=== PATIENT | female | born 1995 | race African-American/Black ===

== ENCOUNTER 2017-12-21 15:43 | Emergency (ER) | payer SELFPAY | END 2017-12-21 16:05 | disposition home or self-care (01) | LOC: BURERS 15:43 | DX: R09.81 Nasal congestion (principal) | CPT/HCPCS: 99283 ==

== ENCOUNTER 2018-02-03 21:49 | Emergency (ER) | payer SELFPAY ==
[2018-02-03 22:31] LABS: Bilirubin Negative (Negative); Blood, Urine Trace (Negative); Glucose, Urine (Dipstick) Negative (Negative); Leukocyte Large (Negative); Nitrite Negative (Negative); Protein, Urine (Dipstick) Negative (Neg-Trace); Specific Gravity, Urine 1.025 (1.005-1.030)
[2018-02-03 22:32] LABS: Pregnancy Test - Urine (BHCG) Negative (Negative); Pregu Control Background? CLEAR/WHITE (CLR/WHITE); Pregu Control Bar Appear? YES (CONTROL BAR); Specific Gravity 1.024 (1.002-1.036)
[2018-02-03 22:33] LABS: Clarity Hazy (Clear)
[2018-02-03 22:38] LABS: RBC/HPF 0-3 HPF (0-3)
[2018-02-03 22:39] LABS: Bacteria/HPF 1+ HPF (None Seen); Squamous Epithelial 0-3 HPF (0-3)
[2018-02-03] MEDS ORDERED: valACYclovir 500 MG TAB ONE (22:50)
[2018-02-03] MEDS ORDERED: Azithromycin 250 MG TAB ONE (22:50)
[2018-02-03] MEDS ORDERED: cefTRIAXone\\ROCEPHIN 500 MG VIAL ONE (22:51)
[2018-02-03] MEDS ORDERED: Lidocaine 1% 20 ML MDV ONE (22:54)
[2018-02-06 09:52] LABS: Chlamydia by PCR Not Detected (NotDetected); GC by PCR Not Detected (NotDetected)
== END 2018-02-03 22:18 | disposition home or self-care (01) ==
LOC: BURERS 21:49
DX: A60.03 Herpesviral cervicitis (principal)
CPT/HCPCS: 81003; 81015; 81025; 87480; 87491; 87510; 87591; 87660; 96372; J0696; J2001

== ENCOUNTER 2018-05-18 15:23 | Emergency (ER) | payer BC, SELFPAY ==
--- NOTE | 2018-05-18 20:56 | RAD ---
RIGHT HAND THREE VIEWS 05/18/18 Comparison is made with films of the right wrist from 2012. No fracture was appreciated. The thumb and first metacarpal appear intact, as do the carpal bones. IMPRESSION: No acute bony findings. POS: HOME
== END 2018-05-18 15:48 | disposition home or self-care (01) ==
LOC: BURERS 15:23
DX: S60.011A Contusion of right thumb without damage to nail, initial encounter (principal); W22.8XXA Striking against or struck by other objects, initial encounter; Y99.0 Civilian activity done for income or pay

== ENCOUNTER 2018-09-07 13:20 | Emergency (ER) | payer BC ==
[2018-09-07] MEDS ORDERED: Azithromycin 250 MG TAB ONE (14:59)
== END 2018-09-07 15:02 | disposition home or self-care (01) ==
LOC: BURERS 13:20
DX: J01.90 Acute sinusitis, unspecified (principal)
CPT/HCPCS: 87081; 87430; 87804; 99283

== ENCOUNTER 2019-02-13 11:13 | Emergency (ER) | payer BC ==
--- NOTE | 2019-02-13 13:34 | RAD ---
RIGHT KNEE 4 VIEWS: DATE: 02/13/2018. FINDINGS: No fracture, dislocation, or joint space narrowing was seen. There may be a small amount of joint fl uid, however. IMPRESSION: No acute bony findings. POS: HOME
== END 2019-02-13 12:05 | disposition home or self-care (01) ==
LOC: BURERS 11:13
DX: S80.211A Abrasion, right knee, initial encounter (principal); S50.312A Abrasion of left elbow, initial encounter; F41.9 Anxiety disorder, unspecified; Z79.899 Other long term (current) drug therapy; W19.XXXA Unspecified fall, initial encounter

== ENCOUNTER 2021-08-23 00:58 | Emergency (ER) | payer BC, SELFPAY ==
[2021-08-23] MEDS ORDERED: Lidocaine 2% Jelly 5 ML TUBE ONE (01:31)
== END 2021-08-23 01:43 | disposition home or self-care (01) ==
LOC: BURERS 00:58
DX: A60.04 Herpesviral vulvovaginitis (principal); I10 Essential (primary) hypertension
CPT/HCPCS: 99283

== ENCOUNTER 2021-12-18 12:27 | Emergency (ER) | payer BC, SELFPAY ==
[2021-12-18] MEDS ORDERED: Ondansetron ODT 4 MG TAB ONE (13:05)
[2021-12-19 08:57] LABS: SARS-CoV-2 PCR by NAA Not Detected (NotDetected)
== END 2021-12-18 13:37 | disposition home or self-care (01) ==
LOC: BURERS 12:27
DX: U07.1 COVID-19 (principal)
CPT/HCPCS: 99283; Q0162; U0003; U0005

== ENCOUNTER 2022-11-03 14:26 | Emergency (ER) | payer BC ==
[2022-11-03] MEDS ORDERED: Benzonatate 100 MG CAP ONE (15:07)
== END 2022-11-03 15:15 | disposition home or self-care (01) ==
LOC: BURERS 14:26
DX: J40 Bronchitis, not specified as acute or chronic (principal)
CPT/HCPCS: 99283

== ENCOUNTER 2023-03-14 13:21 | Emergency (ER) | payer BC | END 2023-03-14 13:51 | disposition home or self-care (01) | LOC: BURERS 13:21 | DX: J06.9 Acute upper respiratory infection, unspecified (principal) | CPT/HCPCS: 99283 ==

== ENCOUNTER 2025-09-12 13:32 | Emergency (ER) | payer BC | END 2025-09-12 15:29 | disposition home or self-care (01) | LOC: BURERS 13:32 | DX: U07.1 COVID-19 (principal); E11.9 Type 2 diabetes mellitus without complications; I10 Essential (primary) hypertension | CPT/HCPCS: 87428; 99283 ==